=== PATIENT | male | born 1965 | race Caucasian/White ===

== ENCOUNTER 2017-04-28 21:23 | Emergency (ER) | payer SELFPAY ==
[~2017-04-28] VITALS: Ht 172.7 cm; Wt 72.7 kg
[~2017-04-28 21:23] MED LIST: CIPRO500 MG OR; LORTAB 5 OR; SKELAXIN800 MG OR; TRAMADOL HCL50 MG OR
[2017-04-28 21:45] LABS: HEMATOCRIT 42.8 % (39.0-50.0); HEMOGLOBIN 14.3 g/dl (14.0-18.0); IMMATURE GRANULOCYTES 0.2 % (0.0-1.0); MEAN CELL VOLUME 95.7 fL CALC (80.0-100.0); MEAN CORPUSCULAR HGB CONC 33.4 g/L CALC (32.0-36.0); NEUT# 5.81 thou/uL (1.82-7.42); RED BLOOD COUNT 4.47 mill/uL (4.70-6.10)
[2017-04-28 21:53] LABS: ALBUMIN 4.2 g/dL (3.2-5.0); ALKALINE PHOSPHATASE 67 u/l (38-126); AMYLASE 39 u/l (30-110); ANION GAP 14 (6-22 (CALC)); BILIRUBIN, TOTAL 0.5 mg/dL (0.0-1.4); BUN 22 mg/dL (9-20); BUN/CREATININE RATIO 22 (12-20 (CALC)); CALCIUM 9.7 mg/dL (8.4-10.2); CARBON DIOXIDE 29 mmol/l (22-30); CHLORIDE 105 mmol/l (95-108); GFR > 60 ML/MIN (>=60 (CALC)); GFR FOR AFR.AMER. > 60 ML/MIN (>=60 (CALC)); GLUCOSE 134 mg/dL (75-110); LIPASE 60 u/l (23-300); POTASSIUM 4.5 mmol/l (3.5-5.1); SGOT/AST 21 u/l (17-59); SGPT/ALT 31 u/l (21-72); SODIUM 143 mmol/l (137-146); TOTAL PROTEIN 6.9 g/dL (6.3-8.2)
[2017-04-28 22:02] LABS: URINE BILIRUBIN - DIPSTICK NEGATIVE (NEGATIVE); URINE BLOOD DIPSTICK TRACE-INTACT (NEGATIVE); URINE CLARITY CLEAR; URINE COLOR YELLOW; URINE GLUCOSE - DIPSTICK NEGATIVE (NEGATIVE); URINE KETONE NEGATIVE (NEGATIVE); URINE LEUK ESTERASE NEGATIVE (NEGATIVE); URINE NITRITE - DIPSTICK NEGATIVE (Negative); URINE PROTEIN - DIPSTICK 30 mg/dL (NEG-TRACE); URINE SPECIFIC GRAVITY 1.025; URINE UROBILINOGEN - DIPSTICK 0.2 E.U./dL (0.2)
[2017-04-28 22:10] LABS: URINE RBC 0-2 RBC/hpf (0-5)
[2017-04-29] MEDS ORDERED: CIPROFLOXACN500 MG PO (01:27)
[2017-04-29 01:30] VITALS: BP 101/58
== END 2017-04-29 01:55 | disposition home or self-care (01) | DRG 690 ==
LOC: ED 21:23
PROVIDERS: Emergency Medicine
DX: N39.0 Urinary tract infection, site not specified (principal); N20.0 Calculus of kidney
CPT/HCPCS: Q9967

== ENCOUNTER 2019-07-23 18:49 | Emergency (ER) | payer SELFPAY ==
[~2019-07-23] VITALS: Ht 172.7 cm; Wt 68.1 kg
[~2019-07-23 18:49] MED LIST changes: +CIPROFLOXACN500 MG PO
[2019-07-23 19:38] LABS: HEMATOCRIT 39.5 % (39.0-50.0); IMMATURE GRANULOCYTES 0.4 % (0.0-5.0); MEAN CELL VOLUME 92.5 fL CALC (80.0-100.0); MEAN CORPUSCULAR HGB 30.4 pG CALC (26.0-32.0); MEAN CORPUSCULAR HGB CONC 32.9 g/L CALC (32.0-36.0); NEUT# 9.27 thou/uL (1.82-7.42); RED BLOOD COUNT 4.27 mill/uL (4.70-6.10); RED CELL DISTRI WIDTH 13.3 % (11.5-15.5)
[2019-07-23 19:56] LABS: ACT PARTIAL THROMBO TIME 30.3 SECONDS (20.0-32.5); BUN 22 mg/dL (9-20); BUN/CREATININE RATIO 21 (12-20 (CALC)); CARBON DIOXIDE 24 mmol/l (22-30); CHLORIDE 97 mmol/l (95-108); CREATININE 1.1 mg/dL (0.7-1.3); GFR > 60 ML/MIN (>=60 (CALC)); GFR FOR AFR.AMER. > 60 ML/MIN (>=60 (CALC)); POTASSIUM 3.8 mmol/l (3.5-5.1); PROTHROMBIN TIME 10.1 SECONDS (9.0-12.5)
[2019-07-23 19:57] LABS: ANION GAP 18 (6-22 (CALC)); SODIUM 135 mmol/l (137-146)
[2019-07-23] MEDS ORDERED: DOXYCYCL HYC100 MG PO (20:35)
[2019-07-23 21:18] VITALS: BP 126/64
== END 2019-07-23 21:18 | disposition home or self-care (01) | DRG 603 ==
LOC: ED 18:49
PROVIDERS: Family Medicine
DX: L03.115 Cellulitis of right lower limb (principal); F17.210 Nicotine dependence, cigarettes, uncomplicated

== ENCOUNTER 2019-08-20 | Emergency (ER) | payer OTHER ==
[~2019-08-20] MED LIST changes: +DOXYCYCL HYC100 MG PO
== END 2019-08-20 02:46 | DRG 395 ==
DX: K40.90 Unilateral inguinal hernia, without obstruction or gangrene, not specified as recurrent (principal); F17.210 Nicotine dependence, cigarettes, uncomplicated